=== PATIENT | female | born 1935 | race Caucasian/White ===

== ENCOUNTER 2024-12-24 15:43 | Observation (INO) ==
--- NOTE | 2024-12-24 16:02 | Emergency Department Note ---
Impression & Plan Syncope, Pneumonia, Elevated procalcitonin, Leukocytosis ED Provider Note HISTORY OF PRESENT ILLNESS: Patient is an 89-year-old female presenting with confusion. Patient reportedly had a fall this morning. Patient does not remember the fall or the events leading up to the fall, and states all she remembers is waking up on the ground. She is reportedly normally alert and oriented but throughout the day today she has been having "brain fog" and a diffuse headache. Patient is not on any anticoagulation or antiplatelet therapies. Denies any double or blurry vision. Denies any numbness or tingling or weakness in her extremities. She denies any chest pain, shortness of breath or abdominal pain. ROS: as above PHYSICAL EXAM: Constitutional: Patient appears in no acute distress. HENT: Head: Normocephalic and atraumatic. Eyes: EOMI, PERRL Mouth/Throat: Mucous membranes moist. Neck: Trachea midline. Neck supple. No midline cervical spine tenderness to palpation. Cardiovascular: RRR, No murmurs, rubs or gallops. Intact distal pulses. Pulmonary/Chest: No respiratory distress. Breath sounds clear and equal bilaterally. No wheezes or rales. No chest wall tenderness to palpation. Abdominal: Abdomen soft, no tenderness, rebound or guarding. Musculoskeletal: No edema, tenderness or deformity noted. Skin: Warm and dry. No rash, erythema, pallor or cyanosis Psychiatric: Appropriate mood and affect for situation. Neurological: Alert and keenly responsive. CN II-XII grossly intact, moving all extremities equally and fully. MDM: - Vitals signs showed hypertension - History obtained via patient and EMS. History as above. - Chronic conditions affecting care: COPD - Differential diagnoses include, but are not limited to: Intracranial hemorrhage; CVA; ACS; dysrhythmia; electrolyte abnormality; pneumonia; UTI; PE - Order placed for continuous cardiac monitoring. At this time, monitor showed rate of 85 bpm with normal sinus rhythm, per my interpretation. - External medical records reviewed. - EKG image interpreted by myself showed normal sinus rhythm. Rate 93 bpm. QT 378. No acute ischemic changes. 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 - Laboratory workup interpreted by myself showed leukocytosis (WBC 14.91) with neutrophil predominance; normal PT/INR; stable electrolytes; normal AST/ALT; normal CK; normal troponin; elevated procalcitonin (1.71); normal lactate; normal TSH - Blood cultures obtained - UA negative for infection - Viral respiratory panel negative - CT head wo contrast negative for acute intracranial pathology - CT cervical spine wo contrast negative for acute pathology - CXR image reviewed and interpreted by myself shows what looks like a left lower lobe pneumonia, per my interpretation. Radiology notes scattered chronic scarring and/or emphysema and a focal patchy consolidation in the left lower lobe suspicious for infection. - Patient given 1g IV tylenol in ER for headache. Given 2g IV rocephin and 500 mg PO azithromycin for pneumonia treatment - Discussion was had with window caser about patient's case and need for admission - Hospitalist consulted for admission - [facility] ASSESSMENT AND PLAN: Diagnosis: Syncope; pneumonia; elevated procalcitonin; leukocytosis Plan: admit Past Med/Surg History Problem List (Updated 12/25/24 @ 01:37 by Marissa Joel MD) Leukocytosis (Acute) Elevated procalcitonin (Acute) Pneumonia (Acute) Syncope (Acute) Medical History Syncope COPD (chronic obstructive pulmonary disease) Social History Smoking Status: Current every day smoker Tobacco Type: Cigarettes Cigarettes Per Day: 7; Second Hand Exposure: No; Do You Dip or Chew Tobacco: No; Tobacco Cessation Education Requested by Patient: No Hx Alcohol Use: Yes Alcohol type: beer Hx Substance Use: No Preferred Language: Malawian Communication Ability: Effective Events Associate Required: No Beliefs That Will Affect Care: None Current Living Situation: Personal Care Facility Other Information That Helps Us Care for You: No Feels Safe at Home: Yes Safety Concerns: Feels Safe At This Time Assistive Devices: Walker Allergies Allergies Allergy/AdvReac Type Severity Reaction Status Date / Time NATALIIA Inhibitors Allergy Unknown Per Toña Unverified 10/21/24 18:44 w/ Raywick Wilkerson [facility] Allergy Unknown Per Toña Uncoded 10/21/24 18:44 w/ Raywick Wilkerson Home Meds Home Medications Medication Instructions Recorded Confirmed acetaminophen 325 mg tablet 325 mg PO HS 10/21/24 12/24/24 acetaminophen 325 mg tablet 325 mg PO Q6H PRN Pain 10/21/24 12/24/24 albuterol sulfate 90 mcg/actuation 2 puff inhalation Q6H PRN 10/21/24 12/24/24 aerosol inhaler Shortness Of Breath fluticasone furoate 100 1 inh inhalation DAILY 10/21/24 12/24/24 mcg-vilanterol 25 mcg/dose inhalation powder (Breo Ellipta) fluticasone propionate 50 1 spray intranasal BID 10/21/24 12/24/24 mcg/actuation nasal spray,suspension ibuprofen 400 mg tablet 400 mg PO TID PRN Pain 10/21/24 12/24/24 mirabegron 50 mg tablet,extended 50 mg PO DAILY 10/21/24 12/24/24 release 24 hr (Myrbetriq) polyethylene glycol 3350 17 gram 17 g PO DAILY 10/21/24 12/24/24 oral powder packet (Miralax) ropinirole 0.25 mg tablet 0.25 mg PO HS 10/21/24 12/24/24 aspirin 81 mg tablet 81 mg PO DAILY 12/24/24 12/24/24 erythromycin 5 mg/gram (0.5 %) eye 1 applic ophthalmic (eye) TID 12/24/24 12/24/24 ointment ipratropium bromide 21 mcg (0.03 2 spray intranasal BID 12/24/24 12/24/24 %) nasal spray oxybutynin chloride 5 mg tablet 5 mg PO BID 12/24/24 12/24/24 Results & Data (ED) Vital Signs Vital Signs - 24 hr 12/24/24 15:48 12/24/24 15:57 12/24/24 15:58 Temperature 36.8 C Temperature Source Oral Pulse Rate 86 88 Pulse Rate [Apical] Respiratory Rate 24 Blood Pressure 149/84 H Blood Pressure [Right Arm] Blood Pressure Mean 105 Blood Pressure Mean [Right Arm] Pulse Oximetry 93 Oxygen Delivery Method Room Air Room Air Sepsis Recent Fever Within 48 Hours No Sepsis New/Unexplained Change in Mental Status Yes Sepsis Action Taken by Nursing Physician Notified 12/24/24 17:34 Temperature Temperature Source Pulse Rate Pulse Rate [Apical] 74 Respiratory Rate 18 Blood Pressure Blood Pressure [Right Arm] 127/72 Blood Pressure Mean Blood Pressure Mean [Right Arm] 90 Pulse Oximetry 92 Oxygen Delivery Method Room Air Sepsis Recent Fever Within 48 Hours Sepsis New/Unexplained Change in Mental Status Sepsis Action Taken by Nursing Laboratory Data 12/24/24 15:54 12/24/24 15:54 Lab Results 12/24/24 12/24/24 12/24/24 Range/Units 15:54 17:16 17:30 WBC 14.91 H (4.8-10.8) K/ul RBC 4.50 (4.20-5.40) M/uL Hgb 14.3 (12.0-16.0) g/dl Hct 42.9 (37.0-47.0) % MCV 95.3 (80.0-100.0) fL MCH 31.8 (25.0-34.0) pg MCHC 33.3 (32.0-36.0) g/dL RDW Std Deviation 46.9 H (36.4-46.3) fL RDW Coeff of Wil 13.2 (11.5-14.5) % Plt Count 190 (130-400) K/uL MPV 11.0 (9.4-12.4) fL Immature Gran % (Auto) 0.4 % Neut % (Auto) 89.5 % Lymph % (Auto) 5.3 % [place] % (Auto) 4.6 % Eos % (Auto) 0.0 % Baso % (Auto) 0.2 % Neut # (Auto) 13.34 H (1.40-6.50) K/uL Lymph # (Auto) 0.79 L (1.20-3.40) K/uL [place] # (Auto) 0.69 H (0.11-0.59) K/uL Eos # (Auto) 0.00 (0.00-0.50) K/uL Baso # (Auto) 0.03 (0.00-0.20) K/uL Immature Gran # (Auto) 0.06 (0.01-0.20) K/uL PT 10.4 (9.0-12.0) Seconds INR 1.0 (0.9-1.1) Sodium 138 (136-145) mmol/L Potassium 4.1 (3.5-5.1) mmol/L Chloride 106 (98-107) mmol/L Carbon Dioxide 25 (21-32) mmol/L Anion Gap 7 (3-11) BUN 18 (6-23) mg/dl Creatinine 1.01 (0.6-1.2) mg/dl Est Cr Clr Drug Dosing 34.2 ml/min eGFR 53.21 BUN/Creatinine Ratio 17.8 (10-20) Glucose 124 H (70-99(Fasting)) mg/dl Lactate 1.7 (0.4-2.0) mmol/L Calcium 9.0 (8.6-10.3) mg/dl Magnesium 1.7 (1.7-2.4) mg/dl Total Bilirubin 0.9 (0.2-1.0) mg/dl AST 14 (13-39) U/L ALT 8 (7-52) U/L Alkaline Phosphatase 66 (34-104) U/L Total Creatine Kinase 154 (26-192) U/L Troponin I High Sens 12.3 (0-14) pg/ml Total Protein 7.3 (6.0-8.3) gm/dl Albumin 3.6 (3.4-5.0) gm/dl Globulin 3.7 (2.5-4.0) gm/dl Albumin/Globulin Ratio 1.0 (0.9-2) Lipase 19 (11-82) U/L Procalcitonin 1.71 H (0-0.5) ng/ml TSH 1.240 (0.300-4.500) uIu/ml Urine Color Yellow Urine Appearance Clear (Clear) Urine pH 5.5 (4.5-7.5) Ur Specific [place] 1.021 (1.000-1.030) Urine Protein Negative (Negative) Urine Glucose (UA) Negative (Negative) Urine Ketones Negative (Negative) Urine Blood Negative (Negative) Urine Nitrite Negative (Negative) Urine Bilirubin Negative (Negative) Urine Urobilinogen Negative (Negative) Ur Leukocyte Esterase Negative (Negative) Urine Comment Adenovirus (PCR) Not Detected (NotDetected) B. pertussis DNA (PCR) Not Detected (NotDetected) B.parapertussis DNA PCR Not Detected (NotDetected) C. pneumoniae DNA (PCR) Not Detected (NotDetected) Coronavirus OC43 (PCR) Not Detected (NotDetected) Coronavirus HKU1 (PCR) Not Detected (NotDetected) Coronavirus 229E (PCR) Not Detected (NotDetected) SARS-CoV-2 (PCR) Not Detected (NotDetected) Coronavirus NL63 (PCR) Not Detected (NotDetected) Human Metapneumovir PCR Not Detected (NotDetected) Influenza Type A (PCR) Not Detected (NotDetected) Influenza Type B (PCR) Not Detected (NotDetected) M. pneumoniae (PCR) Not Detected (NotDetected) Parainfluenza 1 (PCR) Not Detected (NotDetected) Parainfluenza 2 (PCR) Not Detected (NotDetected) Parainfluenza 3 (PCR) Not Detected (NotDetected) Parainfluenza 4 (PCR) Not Detected (NotDetected) RSV (PCR) Not Detected (NotDetected) Entero/Rhino (PCR) Not Detected (NotDetected) Administered Medications Enoxaparin Sodium (Enoxaparin Inj 40 Mg/0.4 Ml Syr) 40 mg SQ HS CHRIS Stop: 01/23/25 22:59 Last Admin: 12/24/24 23:54 Dose: 40 mg Documented By: RABIA Erythromycin (Erythromycin Op Oint 5 Mg/Gm 3.5 Gm Tube) 1 appln OP TID CHRIS Stop: 01/03/25 22:59 Last Admin: 12/24/24 23:57 Dose: 1 appln Documented By: [facility] Fluticasone Propionate (Fluticasone Propionate Na Spr 16 Gm Btl) 1 sprays NA BID CHRIS Stop: 01/23/25 22:53 Last Admin: 12/24/24 23:55 Dose: 1 sprays Documented By: [facility] [place] Ipratropium Mackey (Ipratropium Mackey Nasal [place] 0.03% 30 Ml) 2 sprays NA BID CHRIS Stop: 01/23/25 22:53 Last Admin: 12/24/24 23:56 Dose: 2 sprays Documented By: [facility] [place] Oxybutynin Chloride (Oxybutynin Chloride 5 Mg Tab) 5 mg PO BID CHRIS Stop: 01/23/25 22:59 Last Admin: 12/24/24 23:57 Dose: 5 mg Documented By: [facility] [place] Ropinirole HCl (Ropinirole Hcl 0.25 Mg Tablet) 0.25 mg PO HS CHRIS Stop: 01/23/25 22:53 Last Admin: 12/24/24 23:57 Dose: 0.25 mg Documented By: [facility] Discontinued Medications Azithromycin (Azithromycin 250 Mg Tab) 500 mg PO NOW ONE Stop: 12/24/24 16:52 Last Admin: 12/24/24 18:01 Dose: 500 mg Documented By: Acetaminophen (Ofirmev) 1,000 mg in 100 mls @ 400 mls/hr IV NOW STA Stop: 12/24/24 16:10 Last Infusion: 12/24/24 18:00 Dose: Infused Documented By: Admin: 12/24/24 16:06 Dose: 400 mls/hr Documented By: BENNY Ceftriaxone Sodium (Rocephin) 2,000 mg in 50 mls @ 100 mls/hr IV NOW STA Stop: 12/24/24 17:20 Last Infusion: 12/24/24 20:06 Dose: Infused Documented By: Admin: 12/24/24 18:01 Dose: 100 mls/hr Documented By: Lactated Ringer's (Lr) 500 mls @ 999 mls/hr IV .Q31M ONE Stop: 12/24/24 23:24 Last Infusion: 12/25/24 00:16 Dose: Infused Documented By: Admin: 12/24/24 23:56 Dose: 999 mls/hr Documented By: [facility] [place] Imaging Data Radiologist's Impression: Cervical Spine CT 12/24/24 15:57 CT cervical spine without IV contrast History: Trauma Comparison: None Technique: Using multidetector thin collimation helical acquisition technique, axial, coronal and sagittal CT images through the cervical spine were obtained without intravenous contrast. Dose reduction techniques were achieved by using automatic exposure control and/or adjustment of mA and/or kV according to patient size and/or use of iterative reconstruction technique. Findings: The cervical vertebrae are normally aligned. Normal cervical lordosis. No acute fracture or subluxation. No prevertebral edema. Mild multilevel discogenic and facet degenerative changes. No abnormality of the paraspinous soft tissues. There is severe emphysema. Patchy opacity partially seen in the posterior left upper lung, also noted on chest x-ray. Impression: No acute fracture or traumatic subluxation. Electronically signed by Omkar Patel 12-24-2024 4:48 PM Chest X-Ray 12/24/24 15:57 Chest radiograph, one view History: Chest pain Comparison: 10/21/2024 Findings/impression: Single AP view of the chest performed. Focal patchy consolidation at the periphery of the left lower lobe, is suspicious for infection. Mild scattered chronic scarring and/or emphysema, otherwise similar to prior. The cardiomediastinal silhouette is within normal limits. No pneumothorax. There is no visualized pleural effusion. Electronically signed by Omkar Patel 12-24-2024 4:[address] 12/24/24 15:57 CT head without contrast History: Trauma Comparison: None Technique: Using multidetector thin collimation helical acquisition technique, axial, coronal and sagittal CT images from the skull base to the vertex were obtained without intravenous contrast. Dose reduction techniques were achieved by using automatic exposure control and/or adjustment of mA and/or kV according to patient size and/or use of iterative reconstruction technique. Findings: No intracranial hemorrhage, mass-effect, or midline shift. The ventricles are proportionate to the cerebral sulci. The head to white matter differentiation of the cerebral hemispheres is preserved. The basal cisterns are patent. The visualized paranasal sinuses are clear. Mastoid air cells are clear. Impression: No acute intracranial pathology. Electronically signed by Omkar Patel 12-24-2024 4:42 PM Discharge Plan Visit Data Chief Complaint: Fall Stated Complaint: AMS ED Provider: Marissa Joel Discharge Problem: Syncope, Pneumonia, Elevated procalcitonin, Leukocytosis Patient Disposition: Admitted As Inpatient Condition: Fair Discharge Instructions Interventions: ED Discharge Assessment Last Done: 12/24/24 22:20
[2024-12-24] MEDS: ACETAMINOPHEN 1,000 MG/100 ML VIAL IV STA (16:06)
[2024-12-24 16:11] LABS: Hematocrit (blood only) 42.9 % (37.0-47.0); Hemoglobin 14.3 g/dl (12.0-16.0); Immature Granulocytes # (auto) 0.06 K/uL (0.01-0.20); Immature Granulocytes % (auto) 0.4 %; Mean Corpuscular Hemoglobin 31.8 pg (25.0-34.0); Mean Corpuscular Volume 95.3 fL (80.0-100.0); Platelet Count 190 K/uL (130-400); RDW Standard Deviation 46.9 fL (36.4-46.3); Red Blood Count 4.50 M/uL (4.20-5.40); White Blood Count 14.91 K/ul (4.8-10.8)
[2024-12-24 16:30] LABS: Alanine Aminotransferase 8.0 U/L (7-52); Albumin Globulin Ratio 1.0 (0.9-2); Albumin Level 3.6 gm/dl (3.4-5.0); Alkaline Phosphatase 66.0 U/L (34-104); Anion Gap 7.0 (3-11); Bilirubin,Total 0.9 mg/dl (0.2-1.0); Blood Urea Nitrogen 18.0 mg/dl (6-23); Calcium 9.0 mg/dl (8.6-10.3); Carbon Dioxide 25.0 mmol/L (21-32); Chloride 106.0 mmol/L (98-107); Creatine Kinase 154.0 U/L (26-192); Creatinine Clr Calc Pharmacy 34.2 ml/min; Globulin 3.7 gm/dl (2.5-4.0); Glucose 124.0 mg/dl (70-99(Fasting)); Lipase 19.0 U/L (11-82); Magnesium 1.7 mg/dl (1.7-2.4); Potassium 4.1 mmol/L (3.5-5.1); Sodium 138.0 mmol/L (136-145); Total Protein 7.3 gm/dl (6.0-8.3)
--- NOTE | 2024-12-24 16:32 | XRay Report ---
Chest radiograph, one view History: Chest pain Comparison: 10/21/2024 Findings/impression: Single AP view of the chest performed. Focal patchy consolidation at the periphery of the left lower lobe, is suspicious for infection. Mild scattered chronic scarring and/or emphysema, otherwise similar to prior. The cardiomediastinal silhouette is within normal limits. No pneumothorax. There is no visualized pleural effusion. Electronically signed by Omkar Patel 12-24-2024 4:32 PM
[2024-12-24 16:37] LABS: INR 1.0 (0.9-1.1); Prothrombin Time 10.4 Seconds (9.0-12.0)
--- NOTE | 2024-12-24 16:44 | CT Scan Report ---
CT head without contrast History: Trauma Comparison: None Technique: Using multidetector thin collimation helical acquisition technique, axial, coronal and sagittal CT images from the skull base to the vertex were obtained without intravenous contrast. Dose reduction techniques were achieved by using automatic exposure control and/or adjustment of mA and/or kV according to patient size and/or use of iterative reconstruction technique. Findings: No intracranial hemorrhage, mass-effect, or midline shift. The ventricles are proportionate to the cerebral sulci. The head to white matter differentiation of the cerebral hemispheres is preserved. The basal cisterns are patent. The visualized paranasal sinuses are clear. Mastoid air cells are clear. Impression: No acute intracranial pathology. Electronically signed by Omkar Patel 12-24-2024 4:42 PM
[2024-12-24 16:46] LABS: Thyroid Stimulating Hormone 1.24 uIu/ml (0.300-4.500)
--- NOTE | 2024-12-24 16:49 | CT Scan Report ---
CT cervical spine without IV contrast History: Trauma Comparison: None Technique: Using multidetector thin collimation helical acquisition technique, axial, coronal and sagittal CT images through the cervical spine were obtained without intravenous contrast. Dose reduction techniques were achieved by using automatic exposure control and/or adjustment of mA and/or kV according to patient size and/or use of iterative reconstruction technique. Findings: The cervical vertebrae are normally aligned. Normal cervical lordosis. No acute fracture or subluxation. No prevertebral edema. Mild multilevel discogenic and facet degenerative changes. No abnormality of the paraspinous soft tissues. There is severe emphysema. Patchy opacity partially seen in the posterior left upper lung, also noted on chest x-ray. Impression: No acute fracture or traumatic subluxation. Electronically signed by Omkar Patel 12-24-2024 4:48 PM
[2024-12-24 16:57] LABS: Chlamydia pneumoniae PCR Not Detected (NotDetected); Coronavirus 229E PCR Not Detected (NotDetected); Coronavirus CoV-2 (COVID19)PCR Not Detected (NotDetected); Coronavirus HKU1 PCR Not Detected (NotDetected); Coronavirus NL63 PCR Not Detected (NotDetected); Coronavirus OC43PCR Not Detected (NotDetected); Human Metapneumovirus PCR Not Detected (NotDetected); Parainfluenza Virus 1 PCR Not Detected (NotDetected); Parainfluenza Virus 2 PCR Not Detected (NotDetected); Parainfluenza Virus 3 PCR Not Detected (NotDetected); Parainfluenza Virus 4 PCR Not Detected (NotDetected); Respiratory Syncytial VirusPCR Not Detected (NotDetected); Rhinovirus/Enterovirus PCR Not Detected (NotDetected)
[2024-12-24] MEDS: cefTRIAXone SODIUM 2,000 MG/50 ML BAG IV STA (18:01)
[2024-12-24] MEDS: AZITHROMYCIN 250 MG TAB PO ONE (18:01)
[2024-12-24 18:03] LABS: Appearance Urine Clear (Clear); Glucose Urine UA Negative (Negative)
--- NOTE | 2024-12-24 19:12 | Electrocardiogram Report ---
Test Reason : Blood Pressure : */* mmHG Vent. Rate : 93 BPM Atrial Rate : 93 BPM P-R Int : 166 ms QRS Dur : 136 ms QT Int : 378 ms P-R-T Axes : 78 -63 15 degrees QTcB Int : 469 ms Normal sinus rhythm Right bundle branch block Left anterior fascicular block Bifascicular block Minimal voltage criteria for LVH, may be normal variant T wave abnormality, consider lateral ischemia Abnormal ECG When compared with ECG of 21-Oct-2024 17:57, Right bundle branch block has replaced Incomplete right bundle branch block Confirmed by Omkar Dickerson ([id number]) on 12/24/2024 7:11:57 PM Referred By: Confirmed By: Omkar Dickerson
--- NOTE | 2024-12-24 19:32 | History & Physical Report ---
Date of Service December 24, 2024 Assessment & Plan (1) Syncope: (2) COPD (chronic obstructive pulmonary disease): (3) Pneumonia: (4) Syncope: Plan Ms. Byrnes is an 89yo lady with PMH of COPD and urinary incontinence who presented to the hospital on 12/24 for unwitnessed syncopal episode at assisted living facility. She is currently being managed for a full syncopal event and community acquired pneumonia. #Syncope Pt had syncopal event on 12/24 resulting in a fall. Suspect this is secondary to dehydration vs cardiogenic vs orthostatic causes. Was seen in ED 10/21 for chest pain/PVCs and was advised to follow up in outpatient setting for echocardiogram. -appears to be dry on exam, will give LR 500ml bolus and encourage PO intake -TTE to evaluate for cardiogenic causes -follow morning BMP -PT/OT evaluation -assess orthostatics #Community Acquired Pneumonia CXR and CT show focal patchy consolidation in LLL, WBC and procalcitonin elevated -continue ceftriaxone 2g IV -continue azithromycin 500mg IV -follow CBC and blood cultures #COPD/Emphysema Not in Exacerbation -continue at home inhalers: albuterol prn and Breo Ellipta qdaily -encourage smoking cessation #Urinary Incontinence -continue mirabegron 50mg PO daily and oxybutynin 5mg PO BID Dispo: med tele Diet: regular DVT prophylaxis: lovenox 40mg Code Status: DNR/DNI History of Present Illness Primary Care Provider: NO PCP Ms. Byrnes is an 89yo lady with PMH of COPD and urinary incontinence who presented to the hospital after an episode of syncope this morning. She lives at [facility] and does not recall the episode. She is accompanied by her daughter today who helped with the history. She was apparently well until this morning when she was found on the floor after a fall. The pt stated she passed out but does not recall any prodrome, such as coughing, micturition, sneezing, chest pain, palpitations/flutters/skipped beats, occurring before the episode. No one witnessed the event. As per the pt's daughter, she does not stay hydrated and believes this may be contributing to her symptoms. The pt stated this has happened once previously about 6 weeks ago. She does not take any diuretics or medications that would lower her heart rate or blood pressure. After the fall, she experienced a headache but stated that has since resolved. Workup in the ED is suspicious of pneumonia and pt was started on ceftriaxone and azithromycin. Pt is not complaining of any respiratory symptoms. As per the pt, there have been people at her assisted living facility who are sick with a URI. She denies fever, chills, SOB, abnormal cough, CP, palpitations, N/V/C/D, abdominal pain, and complaints. Allergies Allergy/AdvReac Type Severity Reaction Status Date / Time NATALIIA Inhibitors Allergy Unknown Per [facility] Unverified 10/21/24 18:44 w/ [facility] Allergy Unknown Per [facility] Uncoded 10/21/24 18:44 w/ [facility] Home Medications Medication Instructions Recorded Confirmed Type acetaminophen 325 mg tablet 325 mg PO HS 10/21/24 12/24/24 History acetaminophen 325 mg tablet 325 mg PO Q6H PRN Pain 10/21/24 12/24/24 History albuterol sulfate 90 mcg/actuation 2 puff inhalation Q6H PRN 10/21/24 12/24/24 History aerosol inhaler Shortness Of Breath fluticasone furoate 100 1 inh inhalation DAILY 10/21/24 12/24/24 History mcg-vilanterol 25 mcg/dose inhalation powder (Breo Ellipta) fluticasone propionate 50 1 spray intranasal BID 10/21/24 12/24/24 History mcg/actuation nasal spray,suspension ibuprofen 400 mg tablet 400 mg PO TID PRN Pain 10/21/24 12/24/24 History mirabegron 50 mg tablet,extended 50 mg PO DAILY 10/21/24 12/24/24 History release 24 hr (Myrbetriq) polyethylene glycol 3350 17 gram 17 g PO DAILY 10/21/24 12/24/24 History oral powder packet (Miralax) ropinirole 0.25 mg tablet 0.25 mg PO HS 10/21/24 12/24/24 History aspirin 81 mg tablet 81 mg PO DAILY 12/24/24 12/24/24 History erythromycin 5 mg/gram (0.5 %) eye 1 applic ophthalmic (eye) TID 12/24/24 12/24/24 History ointment ipratropium bromide 21 mcg (0.03 2 spray intranasal BID 12/24/24 12/24/24 History %) nasal spray oxybutynin chloride 5 mg tablet 5 mg PO BID 12/24/24 12/24/24 History Past Med/Surg History Problem List (Updated 12/25/24 @ 01:37 by Marissa Joel MD) Leukocytosis (Acute) Elevated procalcitonin (Acute) Pneumonia (Acute) Syncope (Acute) Medical History Syncope COPD (chronic obstructive pulmonary disease) Social History Smoking Status: Current every day smoker Tobacco Type: Cigarettes Cigarettes Per Day: 7; Second Hand Exposure: No; Do You Dip or Chew Tobacco: No; Tobacco Cessation Education Requested by Patient: No Hx Alcohol Use: Yes Alcohol type: beer Hx Substance Use: No Preferred Language: Kazakh Communication Ability: Effective Well Treatment Offsider Required: No Beliefs That Will Affect Care: None Current Living Situation: Personal Care Facility Other Information That Helps Us Care for You: No Feels Safe at Home: Yes Safety Concerns: Feels Safe At This Time Assistive Devices: Walker Review of Systems Review of Systems: per HPI Physical Exam Physical Exam: GA: well groomed, well nourished in no apparent distress covered in blanket. AAOx3 HEENT: head normocephalic, atraumatic. EOMI. mucus membranes appear dry RESP: vesicular breath sounds b/l. No wheezes, rhonchi, or rales CARDIOVASCULAR: S1 and S2 heard. No murmurs, rubs, or gallops. Radial pulses 2+ b/l RRR GI: no tenderness or masses felt to palpation MSK: no gross abnormalities or focal deficits SKIN: warm, dry, no edema PSYCH: appropriate mood and affect NEURO: CN 2-12 intact. speech fluent. Strength 5/5 in UE and LE B/L. Patellar reflexes 2+. Results & Data Results & Data Vital Signs (Past 12 Hours) Vital Signs Temp Pulse Pulse Resp BP BP Pulse Ox 12/24/24 17:34 74 18 127/72 92 12/24/24 15:58 88 12/24/24 15:57 12/24/24 15:48 36.8 C 86 24 149/84 H 93 O2 Del Method 12/24/24 17:34 Room Air 12/24/24 15:58 12/24/24 15:57 Room Air 12/24/24 15:48 Room Air Laboratory Results Abnormal lab results 12/24/24 12/24/24 Range/Units 15:54 17:16 WBC 14.91 H (4.8-10.8) K/ul RDW Std Deviation 46.9 H (36.4-46.3) fL Neut # (Auto) 13.34 H (1.40-6.50) K/uL Lymph # (Auto) 0.79 L (1.20-3.40) K/uL Harnett # (Auto) 0.69 H (0.11-0.59) K/uL Glucose 124 H (70-99(Fasting)) mg/dl Procalcitonin 1.71 H (0-0.5) ng/ml Diagnostic Findings CT head without contrast History: Trauma Comparison: None Technique: Using multidetector thin collimation helical acquisition technique, axial, coronal and sagittal CT images from the skull base to the vertex were obtained without intravenous contrast. Dose reduction techniques were achieved by using automatic exposure control and/or adjustment of mA and/or kV according to patient size and/or use of iterative reconstruction technique. Findings: No intracranial hemorrhage, mass-effect, or midline shift. The ventricles are proportionate to the cerebral sulci. The head to white matter differentiation of the cerebral hemispheres is preserved. The basal cisterns are patent. The visualized paranasal sinuses are clear. Mastoid air cells are clear. Impression: No acute intracranial pathology. CT cervical spine without IV contrast History: Trauma Comparison: None Technique: Using multidetector thin collimation helical acquisition technique, axial, coronal and sagittal CT images through the cervical spine were obtained without intravenous contrast. Dose reduction techniques were achieved by using automatic exposure control and/or adjustment of mA and/or kV according to patient size and/or use of iterative reconstruction technique. Findings: The cervical vertebrae are normally aligned. Normal cervical lordosis. No acute fracture or subluxation. No prevertebral edema. Mild multilevel discogenic and facet degenerative changes. No abnormality of the paraspinous soft tissues. There is severe emphysema. Patchy opacity partially seen in the posterior left upper lung, also noted on chest x-ray. Impression: No acute fracture or traumatic subluxation. Chest radiograph, one view History: Chest pain Comparison: 10/21/2024 Findings/impression: Single AP view of the chest performed. Focal patchy consolidation at the periphery of the left lower lobe, is suspicious for infection. Mild scattered chronic scarring and/or emphysema, otherwise similar to prior. The cardiomediastinal silhouette is within normal limits. No pneumothorax. There is no visualized pleural effusion. Supervising Physician Co-Signing Physician Notes I personally saw and examined the patient. I independently reviewed the labs, EKG, imaging, problem list, medication list, past medical history and family history. I verified all lawson points and agree with resident physician Dr Omkar Joshi MD with the following exceptions and/or additions: 89 year old female presents to the ER with unwitnessed syncopal episode O/E HS RRR, no murmurs, bibasal rhonchi, no wheezing Syncope - suspect most likely dehydration with current PNA diagnosis, orthostatics in AM, TTE PNA - elevated procalcitonin, WBC with consolidation on CXR, ceftriaxone + azithromycin Resident Activity Tracking Resident Involvement: Resident Care Provided Care Provided: Adult Hospital Medicine (1) Syncope Syncope type: unspecified Qualified Code(s): R55 - Syncope and collapse (2) COPD (chronic obstructive pulmonary disease) COPD type: emphysema Emphysema type: unspecified Qualified Code(s): J43.9 - Emphysema, unspecified
[2024-12-24] MEDS ORDERED: ONDANSETRON INJ 2 MG/ML 2 ML VIAL IV PRN (22:54)
[2024-12-24] MEDS ORDERED: MELATONIN 3 MG TAB PO PRN (22:54)
[2024-12-24] MEDS ORDERED: ALBUTEROL HFA 8 GM INHALER INH PRN (22:54)
[2024-12-24] MEDS ORDERED: ACETAMINOPHEN 325 MG TAB PO PRN (22:54)
[2024-12-24] MEDS ORDERED: POLYETHYLENE (MIRALAX) 17 GM PACK PO PRN (22:54)
[2024-12-24] MEDS: ENOXAPARIN INJ 40 MG/0.4 ML SYR SQ SCH (23:54)
[2024-12-24] MEDS: FLUTICASONE PROPIONATE NA SPR 16 GM BTL SCH (23:55)
[2024-12-24] MEDS: LACTATED RINGER'S 500 ML IV ONE (23:56)
[2024-12-24] MEDS: IPRATROPIUM BROMIDE NASAL SPRAY 0.03% 30 ML SCH (23:56)
[2024-12-24] MEDS: ERYTHROMYCIN OP OINT 5 MG/GM 3.5 GM TUBE OP SCH (23:57)
--- NOTE | 2024-12-25 06:31 | Billing Data ---
Date of Service December 24, 2024 Coding Level of Care Code 92133 INT INP/OBS CARE
[2024-12-25 07:06] LABS: Hematocrit (blood only) 34.9 % (37.0-47.0); Hemoglobin 12.2 g/dl (12.0-16.0); Immature Granulocytes # (auto) 0.04 K/uL (0.01-0.20); Immature Granulocytes % (auto) 0.4 %; Mean Corpuscular Hemoglobin 33.2 pg (25.0-34.0); Mean Corpuscular Volume 94.8 fL (80.0-100.0); Platelet Count 163 K/uL (130-400); RDW Standard Deviation 45.2 fL (36.4-46.3); Red Blood Count 3.68 M/uL (4.20-5.40); White Blood Count 10.74 K/ul (4.8-10.8)
[2024-12-25 07:24] LABS: Anion Gap 8.0 (3-11); Blood Urea Nitrogen 20.0 mg/dl (6-23); Calcium 8.6 mg/dl (8.6-10.3); Carbon Dioxide 23.0 mmol/L (21-32); Chloride 106.0 mmol/L (98-107); Creatinine Clr Calc Pharmacy 38.6 ml/min; Potassium 3.7 mmol/L (3.5-5.1); Sodium 137.0 mmol/L (136-145)
[2024-12-25 08:24] VITALS: O2SAT 91
[2024-12-25] MEDS ORDERED: AZITHROMYCIN 500 MG/255 ML BAG IV SCH (09:00)
[2024-12-25] MEDS: cefTRIAXone SODIUM 2,000 MG/50 ML BAG IV SCH (09:37)
[2024-12-25] MEDS: FLUTICASONE/VILANTEROL 100/25MCG 14 PUFFS/INHALER INH SCH (09:40)
[2024-12-25] MEDS: VIBEGRON 75 MG TAB PO SCH (09:40)
[2024-12-25] MEDS: AZITHROMYCIN 250 MG TAB PO SCH (09:40)
[2024-12-25] MEDS ORDERED: NICOTINE POLACRILEX 2 MG GUM MT PRN (10:03)
[2024-12-25 11:06] VITALS: BP 132/75; PULSE 79; RESP 24; TEMP 98.1
--- NOTE | 2024-12-25 11:07 | XCELERA ---
[id number]
[2024-12-25] MEDS: NON-FORMULARY MEDICATION (Aspirin 81 mg Tablet) PO SCH (11:23)
--- NOTE | 2024-12-25 16:54 | Discharge Summary ---
Discharge Summary Date of Service December 25, 2024 Principal Dx & Hospital Course #1 = Principal Diagnosis (1) Syncope: (2) COPD (chronic obstructive pulmonary disease): (3) Pneumonia: Plan Margarette Byrnes is an 89 year old female admitted to [facility] from December 24 - 2024 due to a syncopal event. No arrhythmia was noted on telemetry overnight. Echocardiogram was relatively unremarkable except for pulmonary hypertension and recommend referral to pulmonology regarding this. Orthostatics in the morning were normal and she did not have any lightheadedness. She was diagnosed with pneumonia and suspect she became dehydrated with this causing her syncopal event. She was treated for pneumonia with ceftriaxone and azithromycin. If she has repeated syncopal episodes recommend setting up a vehicle monitor technician as an outpatient. Please continue on antibiotics as prescribed on discharge for your pneumonia. Highly recommend stopping smoking while you recover from pneumonia. Notes For Next Care Provider Consider referral to pulmonology for pulmonary hypertension although likely this is due to smoking and COPD and unwilling to consider smoking cessation Consider outpatient vehicle monitor technician Medication Changes From Visit Augmentin and azithromycin for pneumonia Admission HPI Per Admitting Provider Ms. Byrnes is an 89yo lady with PMH of COPD and urinary incontinence who presented to the hospital after an episode of syncope this morning. She lives at [facility] and does not recall the episode. She is accompanied by her daughter today who helped with the history. She was apparently well until this morning when she was found on the floor after a fall. The pt stated she passed out but does not recall any prodrome, such as coughing, micturition, sneezing, chest pain, palpitatio ns/flutters/skipped beats, occurring before the episode. No one witnessed the event. As per the pt's daughter, she does not stay hydrated and believes this may be contributing to her symptoms. The pt stated this has happened once previously about 6 weeks ago. She does not take any diuretics or medications that would lower her heart rate or blood pressure. After the fall, she experienced a headache but stated that has since resolved. Workup in the ED is suspicious of pneumonia and pt was started on ceftriaxone and azithromycin. Pt is not complaining of any respiratory symptoms. As per the pt, there have been people at her assisted living facility who are sick with a URI. She denies fever, chills, SOB, abnormal cough, CP, palpitations, N/V/C/D, abdominal pain, and complaints. Discharge Exam Respiratory normal respiratory effort, lungs clear to auscultation Cardiovascular RRR, no murmur, no edema Discharge Plan Discharge Items Patient Disposition: Personal Senior Care Reason For Visit: SYNCOPE Discharge Diagnosis: Syncope Condition on Discharge: Fair Activity: Resume your previous activity Non-emergency contact: Primary Care Provider Call non-emergency contact if: you have any medication questions and your symptoms worsen Follow-up/Referrals: PCP,NO [Primary Care Provider] - Diet: Regular Addtl Attending Provider Instructions: You were admitted to [facility] from December 24 - 2024 due to a syncopal event. No arrhythmia was noted on telemetry overnight. Ech ocardiogram was relatively unremarkable except for pulmonary hypertension and recommend follow up with pulmonology regarding this. Orthostatics in the morning were normal and you did not have any lightheadedness. You were diagnosed with pneumonia and suspect you became dehydrated with this causing your syncopal event. If you have repeated episodes recommend setting up a vehicle monitor technician as an outpatient. Please continue on antibiotics as prescribed on discharge for your pneumonia. Highly recommend stopping smoking while you recover from pneumonia. Pending Studies at Discharge: No Stand-Alone Forms: My [facility], Smoking Cessation Skilled Items Patient informed of condition?: Yes DNR: Yes Discharge Level of Care: Other Communicable Disease: No Discharge Prognosis: Stable Lines: None Urinary Catheter: No Medications and DC Order Prescriptions: Continued acetaminophen 325 mg tablet 325 mg PO HS acetaminophen 325 mg tablet 325 mg PO Q6H PRN (Reason: Pain) polyethylene glycol 3350 [Miralax] 17 gram Powder In Packet 17 g PO DAILY ropinirole 0.25 mg tablet 0.25 mg PO HS ibuprofen 400 mg Tablet 400 mg PO TID PRN (Reason: Pain) albuterol sulfate 90 mcg/actuation HFA aerosol inhaler 2 puff INHALATION Q6H PRN (Reason: Shortness Of Breath) fluticasone propionate 50 mcg/actuation spray,suspension 1 spray INTRANASAL BID mirabegron [Myrbetriq] 50 mg tablet extended release 24 hr 50 mg PO DAILY fluticasone furoate-vilanterol [Breo Ellipta] 100-25 mcg/dose blister with device 1 inh INHALATION DAILY erythromycin 5 mg/gram (0.5 %) ointment 1 applic ophthalmic (eye) TID Rx Instructions: use 1 cm in left eye three times a day aspirin 81 mg Tablet 81 mg PO DAILY oxybutynin chloride 5 mg tablet 5 mg PO BID ipratropium bromide 21 mcg (0.03 %) spray,non-aerosol 2 spray INTRANASAL BID Discharge Orders: Discharge Order (Routine); Ordered 12/25/24 Ordered By: Antonio George/Other Patient Handouts: Amoxicillin/Clavulanate Oral Tablet, Azithromycin Oral Tablet Admission Data Admit Date/Time: 12/24/24 19:08 Attending Provider: Antonio Belcher Admit Provider: Omkar Joshi Primary Care Provider: PCP,NO Other Providers: Antonio Belcher Other Interventions: Discharge Summary Assessment (RN) Last Done: 12/25/24 14:51 Hospital Stay Data Consultations 12/24/24 18:05 ED Decision to Admit Stat Diagnostic Imagining Performed 12/24/24 15:57 CT cervical spine wo con Stat No acute fracture or traumatic subluxation. CT head/brain wo con Stat No acute intracranial pathology. Pending Results Patient Have Any Pending Studies at Discharge: No Discharge Instructions Given to Patient (Per Discharging Provider) You were admitted to [facility] from December 24 - 2024 due to a syncopal event. No arrhythmia was noted on telemetry overnight. Echocardiogram was relatively unremarkable except for pulmonary hypertension and recommend follow up with pulmonology regarding this. Orthostatics in the morning were normal and you did not have any lightheadedness. You were diagnosed with pneumonia and suspect you became dehydrated with this causing your syncopal event. If you have repeated episodes recommend setting up a vehicle monitor technician as an outpatient. Please continue on antibiotics as prescribed on discharge for your pneumonia. Highly recommend stopping smoking while you recover from pneumonia. Total Time Total Time Spent Total Time Spent (In Minutes): 40 Coding Level of Care Code 30023 INP/OBS DISCH >30 MIN Diagnoses Syncope, unspecified syncope type R55 Syncope type: unspecified Chronic obstructive pulmonary disease with emphysema, unspecified emphysema type J43.9 COPD type: emphysema Emphysema type: unspecified Pneumonia J18.9
== END 2024-12-25 16:59 | disposition home or self-care (01) | DRG 640 ==
LOC: SUATTDRO → ED 15:43 → 2S 19:08 → INTOOBSV 19:08 → 2S 22:20